=== PATIENT | female | born 1980 | race African-American/Black ===

== ENCOUNTER 2017-03-28 00:25 | Emergency (ER) | payer MEDICARE, MEDICAID ==
[~2017-03-28] VITALS: Ht 170.2 cm; Wt 113.4 kg
[2017-03-28 01:54] LABS: Basophils # (auto) 0 uL; Basophils % (auto) 0.5 % (0.0-2.0); CONDITION Y; Eosinophils # (auto) 0 uL; Hematocrit 34.8 % (36.0-46.0); Hemoglobin 11.8 g/dL (12.2-16.2); Lymphocytes # (auto) 3.6 uL; Lymphocytes % (auto) 47.5 % (10.0-50.0); Mean Corpuscular Hemoglobin 29.5 pg (28.0-32.0); Mean Corpuscular Hgb Conc. 33.8 g/dL (32.0-36.0); Mean Corpuscular Volume 87.3 fL (80.0-100.0); Mean Platelet Volume 8.1 fL (7.4-10.4); Monocytes # (auto) 0.6 uL; Monocytes % (auto) 8.1 % (0.0-12.0); Neutrophils # (auto) 3.3 uL; Neutrophils % (auto) 43.9 % (37.0-80.0); Platelet Count (auto) 323 10^3/uL (140-450); Red Cell Distribution Width 15.7 % (11.6-16.0); White Blood Cell 7.6 10^3/uL (4.4-10.8)
[2017-03-28 02:14] LABS: BUN/Creatinine Ratio 17.5; Calcium 8.7 mg/dL (8.5-10.1); Potassium 3.5 mmol/L (3.5-5.1)
[2017-03-28 02:16] LABS: Bilirubin, Total 0.2 mg/dL (0.2-1.0); Total Protein 6.8 g/dL (6.4-8.2)
[2017-03-28 02:22] LABS: Acetaminophen < 2.0 ug/mL (10-30); Salicylate < 1.7 mg/dL (2.8-20.0)
[2017-03-28 07:36] VITALS: BP 128/78
[2017-03-28 08:28] LABS: Urine Bilirubin Negative (Negative); Urine Blood Negative /uL (Negative); Urine Color Yellow (Yellow); Urine Glucose Normal (Normal); Urine Ketone Negative (Negative); Urine Mucus FEW (None Seen); Urine Nitrite Negative (Negative); Urine RBC 1 /hpf (0 - 4); Urine Squamous Epithelial Cell FEW /hpf (<5); Urine Urobilinogen Normal (Negative)
== END 2017-03-28 08:50 | disposition home or self-care (01) ==
LOC: ER 00:25 → EDBD 00:25 → ER 08:50
DX: R56.9 Unspecified convulsions (principal); G47.00 Insomnia, unspecified; F99 Mental disorder, not otherwise specified; J45.909 Unspecified asthma, uncomplicated
CPT/HCPCS: 36415; 80053; 80307; 80329; 81001; 85025

== ENCOUNTER 2018-06-17 04:53 | Inpatient (IN) | payer MEDICARE, MEDICAID ==
[~2018-06-17] VITALS: Ht 182.9 cm; Wt 117.2 kg
[2018-06-17] MEDS ORDERED: SODIUM CHLORIDE 0.9% 1,000 ML IVB ONE (06:53)
[2018-06-17 07:39] LABS: Urine Bacteria NONE SEEN /hpf (None Seen); Urine Blood Negative /uL (Negative); Urine Hyaline Cast FEW /lpf (0 - 2); Urine Mucus FEW (None Seen); Urine Specific Gravity 1.026 (1.001-1.035); Urine WBC 1 /hpf (0 - 5)
[2018-06-17 07:55] LABS: Alcohol, Urine < 3.0 mg/dL (0-5); Amphetamine Screen, Urine NEGATIVE (NEGATIVE); Barbiturate Scree,Urine NEGATIVE (NEGATIVE); Benzodiazephine Screen, Urine NEGATIVE (NEGATIVE); Cannabinoid Screen, Urine NEGATIVE (NEGATIVE); Cocaine Screen, Urine NEGATIVE (NEGATIVE); Opiate Scree,Urine NEGATIVE (NEGATIVE); Phencyclidine Screen, Urine NEGATIVE (NEGATIVE)
[2018-06-17 08:25] LABS: Acetaminophen < 2.0 ug/mL (10-30); Albumin 3.2 g/dL (3.4-5.0); BUN/Creatinine Ratio 17.5; Calcium 8.3 mg/dL (8.5-10.1); Magnesium 2.3 mg/dL (1.6-2.6); Potassium 3.3 mmol/L (3.5-5.1); Salicylate 2.2 mg/dL (2.8-20.0)
[2018-06-17 08:29] LABS: Basophils # (auto) 0 uL; Basophils % (auto) 0.5 % (0.0-2.0); Eosinophils # (auto) 0 uL; Hematocrit 35.7 % (36.0-46.0); Hemoglobin 11.4 g/dL (12.2-16.2); Lymphocytes # (auto) 1.2 uL; Lymphocytes % (auto) 14.2 % (10.0-50.0); Mean Corpuscular Hemoglobin 28.2 pg (28.0-32.0); Mean Corpuscular Volume 88.1 fL (80.0-100.0); Monocytes # (auto) 0.5 uL; Monocytes % (auto) 6.5 % (0.0-12.0); Neutrophils # (auto) 6.7 uL; Neutrophils % (auto) 78.8 % (37.0-80.0); Nucleated Red Blood Cells % 0.1 %; Platelet Count (auto) 335 10^3/uL (140-450); Red Blood Cells 4.05 10^6/uL (4.0-5.20); Red Cell Distribution Width 15.4 % (11.8-14.3); White Blood Cell 8.5 10^3/uL (4.4-10.8)
[2018-06-17 08:37] LABS: Bilirubin, Total 0.1 mg/dL (0.2-1.0); Total Protein 7.5 g/dL (6.4-8.2)
[2018-06-17 11:53] LABS: Lactic Acid w/Reflex 2.4 mmol/L (0.4-2.0)
[2018-06-17] MEDS ORDERED: cefTRIAXone 1GM/10ml IVPUSH 10 ML IV ONE (12:00)
[2018-06-17] MEDS ORDERED: SODIUM CHLORIDE 0.9% 1,000 ML IV SCH (12:26)
[2018-06-17] MEDS ORDERED: LACTULOSE 20Gm/30ML SOLN PO PRN (12:30)
[2018-06-17] MEDS ORDERED: ACETAMINOPHEN 500 MG TAB PO PRN (12:30)
[2018-06-17] MEDS ORDERED: ONDANSETRON HCL 4 MG/2 ML VIAL IV PRN (12:30)
[2018-06-17] MEDS ORDERED: NITROGLYCERIN 0.4 MG SL TAB SL PRN (12:30)
[2018-06-17] MEDS ORDERED: MORPHINE SULFATE 4 MG/ML SYR/VIAL IV PRN ×2 (12:30)
[2018-06-17] MEDS ORDERED: HYDROcodone-ACET 5/325MG TAB PO PRN (12:30)
[2018-06-17] MEDS ORDERED: LORazepam 2MG/ML-1ML VIAL IV PRN ×3 (12:30→20:00)
[2018-06-17] MEDS ORDERED: LABETALOL HCL 5 MG/ML ML 20ML VIAL IV PRN (12:30)
[2018-06-17 13:43] VITALS: BP 108/66
[2018-06-17 14:56] VITALS: BP 108/66
[2018-06-17] MEDS: ASPirin 81 mg TAB PO SCH (15:23)
[2018-06-17] MEDS: SOD CHL 0.9%/ KCL 20MEQ 1,000 ML IV SCH (15:28)
[2018-06-17] MEDS: ENOXAPARIN SOD 40 MG/0.4 ML SYRINGE SC SCH (15:28)
[2018-06-17 16:58] VITALS: BP 105/63
[2018-06-17 22:00] VITALS: BP 105/52
[2018-06-18] MEDS ORDERED: LORazepam 2MG/ML-1ML VIAL IV PRN (00:30)
[2018-06-18] MEDS: SOD CHL 0.9%/ KCL 20MEQ 1,000 ML IV SCH (03:50)
[2018-06-18 05:00] VITALS: BP 109/52
[2018-06-18] MEDS ORDERED: [UNRECOGNIZED DRUG - CODE] PO (07:31)
[2018-06-18] MEDS ORDERED: LEVE500T22 PO (07:31)
[2018-06-18] MEDS ORDERED: TOPI100T68 PO (07:31)
[2018-06-18] MEDS ORDERED: TRAZ100T2 PO (07:31)
[2018-06-18] MEDS ORDERED: FLUO-125 PO (07:31)
[2018-06-18] MEDS ORDERED: LURA40TA PO (07:31)
[2018-06-18] MEDS ORDERED: DICL50TA2 PO (07:31)
[2018-06-18 08:53] VITALS: BP 111/74
[2018-06-18] MEDS ORDERED: PANTOPRAZOLE 40 MG TAB PO SCH (10:00)
[2018-06-18] MEDS: ENOXAPARIN SOD 40 MG/0.4 ML SYRINGE SC SCH (10:00)
[2018-06-18] MEDS: ASPirin 81 mg TAB PO SCH (10:28)
[2018-06-18 13:00] VITALS: BP 114/63
== END 2018-06-18 13:28 | disposition left against medical advice (07) | DRG 92 ==
LOC: EDUNIT# 04:53 → ER 04:59 → TELE 05:00 → TELE-EAST 13:15
PROVIDERS: ADMIT Internal Medicine; ATTEND Internal Medicine
DX: G92 Toxic encephalopathy (principal); F84.0 Autistic disorder; F20.9 Schizophrenia, unspecified; E87.6 Hypokalemia; D64.9 Anemia, unspecified; E66.01 Morbid (severe) obesity due to excess calories; G40.909 Epilepsy, unspecified, not intractable, without status epilepticus; J45.909 Unspecified asthma, uncomplicated; Z68.35 Body mass index [BMI] 35.0-35.9, adult
CPT/HCPCS: 36415; 70450; 71045; 80053; 80307; 80329; 81001; 81025; 82550; 82962; 83605; 83735; 84443; 85025; 85652; 87077; 87081; 87086; 87186; 87205; 93005; 94761; 96361; 96374; J0696

== ENCOUNTER 2018-07-10 21:08 | Emergency (ER) | payer MEDICARE, MEDICAID ==
[~2018-07-10] VITALS: Ht 172.7 cm; Wt 108.9 kg
[~2018-07-10 21:08] MED LIST: DICL50TA2 PO; FLUO-125 PO; LEVE500T22 PO; LURA40TA PO; TOPI100T68 PO; TRAZ100T2 PO; [UNRECOGNIZED DRUG - CODE] PO
[2018-07-10 21:24] VITALS: BP 129/86
== END 2018-07-10 23:05 | disposition home or self-care (01) ==
LOC: ER 21:08
DX: J45.909 Unspecified asthma, uncomplicated (principal); G40.909 Epilepsy, unspecified, not intractable, without status epilepticus; Z76.0 Encounter for issue of repeat prescription; Z79.899 Other long term (current) drug therapy